=== PATIENT | male | born 1975 | race Caucasian/White ===

== ENCOUNTER 2016-08-11 10:58 | Emergency (ER) | payer MEDICAID ==
[~2016-08-11] VITALS: Ht 185.4 cm; Wt 95.3 kg
[2016-08-11 11:49] VITALS: BP 148/94
== END 2016-08-11 11:53 | disposition home or self-care (01) ==
LOC: ER 11:10
DX: R31.9 Hematuria, unspecified (principal); F17.210 Nicotine dependence, cigarettes, uncomplicated
CPT/HCPCS: 81002

== ENCOUNTER 2017-11-28 16:46 | Emergency (ER) | payer MEDICAID ==
[~2017-11-28] VITALS: Ht 180.3 cm; Wt 87.1 kg
[2017-11-28 17:04] VITALS: BP 119/72
[2017-11-28] MEDS ORDERED: cefTRIAXone SOD 1,000 MG VL IM ONE (19:30)
[2017-11-28] MEDS ORDERED: HYDROcodone-ACET 10/325MG TAB PO ONE (19:30)
[2017-11-28] MEDS ORDERED: LIDOCAINE W/ EPINEPHRINE 2% INJ 20ML VIAL IJ ONE (19:30)
[2017-11-28] MEDS ORDERED: TETANUS-DIPTH-ACEL PERTUSSIS 0.5ML SYRG IM ONE (19:45)
== END 2017-11-28 20:22 | disposition home or self-care (01) ==
LOC: ER 16:50
DX: S61.511A Laceration without foreign body of right wrist, initial encounter (principal); W11.XXXA Fall on and from ladder, initial encounter; Y93.89 Activity, other specified; Y99.8 Other external cause status; Y92.89 Other specified places as the place of occurrence of the external cause
CPT/HCPCS: 12002; 73090; 73130; 90471; 90715; 96372; 99284; J0696

== ENCOUNTER 2018-07-14 18:00 | Emergency (ER) | payer BC, MEDICAID ==
[~2018-07-14] VITALS: Ht 180.3 cm; Wt 90.7 kg
[2018-07-14] MEDS ORDERED: LIDOCAINE 1% HCL (LOCAL ANESTH.) INJ 20ML MDV IJ ONE (23:45)
[2018-07-14] MEDS ORDERED: BACITRACIN TOP OINT 1 UD PKG TOP ONE (23:45)
[2018-07-15] MEDS ORDERED: IBUPROFEN 800 MG TAB PO ONE
[2018-07-15 00:01] VITALS: BP 119/79
== END 2018-07-15 02:13 | disposition home or self-care (01) ==
LOC: ER 18:05
DX: S62.601B Fracture of unspecified phalanx of left index finger, initial encounter for open fracture (principal); F17.210 Nicotine dependence, cigarettes, uncomplicated; W23.0XXA Caught, crushed, jammed, or pinched between moving objects, initial encounter; Y93.89 Activity, other specified; Y99.8 Other external cause status; Y92.89 Other specified places as the place of occurrence of the external cause
CPT/HCPCS: 29130; 73140; 99283; J2001; 12001